=== PATIENT | female | born 1970 | race Caucasian/White ===

== ENCOUNTER → 2021-04-18 06:45 | Outpatient (CLI) | payer OTHER, SELFPAY ==
[2021-04-18 17:52] LABS: SARS-CoV-2 RNA PCR Negative
== END ==
PROVIDERS: PCP Physician Assistant; Visit Provider Physician Assistant
DX: J02.9 Acute pharyngitis, unspecified (principal); Z20.822 Contact with and (suspected) exposure to COVID-19
CPT/HCPCS: C9803; U0003; U0005

== ENCOUNTER → 2021-09-30 11:18 | Outpatient (CLI) | payer OTHER, SELFPAY ==
--- NOTE | ~2021-09-30 | MM_ITS ---
EXAMINATION: MM scrn soraya implant BI w maggie HISTORY: Screening mammogram TECHNIQUE: Craniocaudal and mediolateral oblique 3-D tomosynthesis images with implant displacement a nd synthetic 2-D images were generated. Craniocaudal and mediolateral oblique views of the breasts wi thout implant displacement were obtained using full field digital mammography. CAD analysis was submi tted and interpreted. COMPARISON: 08/25/2018, 09/16/2016 BREAST PARENCHYMAL COMPOSITION: There are scattered areas of fibroglandular density. FINDINGS: There is no evidence of suspicious mass, calcification, or architectural distortion to sugg est malignancy in either breast. There has been no suspicious interval change. IMPRESSION: 1. No mammographic evidence of malignancy. 2. Recommend routine screening mammography in one year. BI-RADS Category 1: Negative Reviewed, dictated and finalized at location A. MENT REPAIRER
== END ==
PROVIDERS: PCP Physician Assistant; Visit Provider Physician Assistant
DX: Z12.31 Encounter for screening mammogram for malignant neoplasm of breast (principal)
CPT/HCPCS: 77063; 77067

== ENCOUNTER → 2022-11-24 15:42 | Outpatient (CLI) | payer OTHER, SELFPAY ==
--- NOTE | ~2022-11-24 | XR_ITS ---
EXAM: XR lumbar spine min 4V DATE: 11/24/2022 16:02 HISTORY: Spondylosis without myelopathy or radiculopathy, lumbar faby . COMPARISON: None available. FINDINGS: 5 nonrib-bearing lumbar-type vertebral bodies. Pedicles intact. 6 mm anterolisthesis at L4 -5, which increases to 7 mm in flexion and decreases to 5 mm in extension. No other dynamic listhesis . Vertebral body heights preserved. Multilevel disc space narrowing, mild at L4-5 and moderate at L5- S1. Mild multilevel facet sclerosis and hypertrophy. No fracture or dislocation in the lumbar spine. Posterior displacement of the second and third coccygeal elements. IMPRESSION: Grade 1, dynamic rlisthesis at L4-5. Multilevel mild-moderate degenerative disc disease a nd facet arthropathy. Posterior displacement of the second and third coccygeal elements, correlate wi th history of tailbone pain/prior injury. Reviewed, dictated and finalized at location K. ING MACHINE OPERATOR IMPRESSION: Grade 1, dynamic rlisthesis at L4-5. Multilevel mild-moderate degen erative disc disease and facet arthropathy. Posterior displacement of the secon d and third coccygeal elements, correlate with history of tailbone pain/prior i njury.
== END ==
PROVIDERS: PCP Physician Assistant; Visit Provider Nurse Practitioner Adult Health
DX: M47.816 Spondylosis without myelopathy or radiculopathy, lumbar region (principal); S33.2XXA Dislocation of sacroiliac and sacrococcygeal joint, initial encounter; T14.90XA Injury, unspecified, initial encounter
CPT/HCPCS: 72110

== ENCOUNTER 2022-12-21 10:26 | Outpatient (CLI) | payer OTHER, SELFPAY ==
--- NOTE | ~2022-12-21 | MR_ITS ---
MRI of the lumbar spine Clinical History: Back pain Technique: Axial T2-weighted images, and sagittal T1-weighted, T2-weighted, and T2 fat-sat images wer e acquired. Findings: There is no fracture in the lumbar spine. 3 mm anterolisthesis of L4 over L5 present. No coronel spicious bone marrow signal abnormality seen. There is reactive marrow signal about the L5-S1 disc sp chandra due to underlying degenerative disc disease. At L1-L2, L2-L3, and L3-L4, there is no disc bulge or herniation. No spinal canal stenosis or neural foraminal narrowing at these levels. At L4-L5, there is disc desiccation with minimal disc bulge. There is moderate to advanced facet arth ropathy. No spinal canal stenosis or neural foraminal narrowing. At L5-S1, there is minimal disc bulge with minimal facet arthropathy. No spinal canal stenosis or julien ral foraminal narrowing. Paravertebral soft tissues are unremarkable. Impression: Mild degenerative spondylosis, as detailed above, worst at L4-L5. 3 mm anterolisthesis of L4 over L5. Reviewed, dictated and finalized at [facility]. Impression: Mild degenerative spondylosis, as detailed above, worst at L4-L5. 3 mm anterolisthesis of L4 over L5.
== END 2022-12-21 10:27 | disposition home or self-care (01) ==
PROVIDERS: PCP Physician Assistant; Visit Provider Nurse Practitioner Adult Health
DX: M47.816 Spondylosis without myelopathy or radiculopathy, lumbar region (principal)
CPT/HCPCS: 72148

== ENCOUNTER → 2023-09-06 08:17 | Outpatient (CLI) | payer OTHER, SELFPAY ==
--- NOTE | ~2023-09-06 | MMUS_ITS ---
EXAMINATION: MM diag soraya implant BI w maggie, US breast RT limited HISTORY: History of right breast infection treated 1.5 months ago. Symptoms are absent currently afte r antibiotics. Slight discoloration. TECHNIQUE: Additional 3-D tomosynthesis images of the breasts were performed and synthetic 2-D images were generated. CAD analysis was submitted and interpreted. High resolution Limited right breast ult rasound was performed. COMPARISON: Comparison to multiple prior studies sequentially, with oldest reviewed study dated 07/29. BREAST PARENCHYMAL COMPOSITION: Breast composed of scattered areas of fibroglandular density FINDINGS: MAMMOGRAPHIC FINDINGS: The left breast is stable without evidence for malignancy. There are focal asymmetry superiorly in th e right breast on implant displaced view which were not definitely seen on prior study. No correspond ing abnormality on CC or mediolateral view. ULTRASOUND: Limited right breast ultrasound: At 4:00, 10 cm from the nipple, there is an irregular hypoechoic are a with mixed posterior attenuation. No definitive walled off mass is identified. No discrete mass. IMPRESSION: 1. Focal right breast asymmetry by mammography and irregular hypoechoic structures by ultrasound are likely related to prior infectious process and most likely benign. 2. Recommend 6 month follow-up diagnostic right mammogram and ultrasound recommended. BI-RADS CATEGORY 3-PROBABLY BENIGN FINDING RECOMMENDATION: 6 month follow up recommended. Reviewed, dictated and finalized at location A. STICKER IMPRESSION: 1. Focal right breast asymmetry by mammography and irregular hypoechoic structu res by ultrasound are likely related to prior infectious process and most likel y benign. 2. Recommend 6 month follow-up diagnostic right mammogram and ultrasound recomm ended. BI-RADS CATEGORY 3-PROBABLY BENIGN FINDING RECOMMENDATION: 6 month follow up recommended.
== END ==
PROVIDERS: PCP Physician Assistant Surgical; Visit Provider Physician Assistant Surgical
DX: N61.1 Abscess of the breast and nipple (principal); R92.8 Other abnormal and inconclusive findings on diagnostic imaging of breast
CPT/HCPCS: 76642; 77062; 77066; G0279

== ENCOUNTER 2025-04-19 12:30 | Outpatient (CLI) | payer OTHER, SELFPAY ==
--- NOTE | ~2025-04-19 | MM_ITS ---
EXAMINATION: MM scrn soraya implant BI w maggie INDICATION: Asymptomatic, referred for screening mammogram COMPARISON: 09/30/2021 through 09/16/2016 TECHNIQUE: Digital Breast Tomosynthesis CC, MLO, and implant displaced CC and MLO views of Both breas ts were obtained with computer-aided detection to assist in interpretation of the study. FINDINGS: There are scattered areas of fibroglandular density. Bilateral breast Retroglandular Silicone implants in place appears intact. No focal dominant mass, architectural distortion, or suspicious microcalcifications are identified. There are no features to suggest malignancy. IMPRESSION: 1. No evidence of malignancy in the breasts. 2. Both breasts Retroglandular Silicone implants appears intact. Recommend continued screening mammography BI-RADS 1, NEGATIVE Reviewed, dictated and finalized at location B.
== END 2025-04-19 12:31 | disposition home or self-care (01) ==
LOC: MICIMG 12:31
PROVIDERS: PCP Physician Assistant; Visit Provider Physician Assistant
DX: Z12.31 Encounter for screening mammogram for malignant neoplasm of breast (principal); Z98.82 Breast implant status
CPT/HCPCS: 77063; 77067